=== PATIENT | male | born 1985 | race Caucasian/White ===

== ENCOUNTER 2016-12-03 16:07 | Inpatient (IN) | payer MEDICAID, OTHER ==
--- NOTE | 2016-12-03 17:52 | ED ---
Psych HPI - General Chief Complaint: Psychiatric Symptoms Stated Complaint: Suicidal Time Seen by Provider: 12/03/16 16:30 Source: patient, family, RN notes reviewed Mode of arrival: ambulatory - History of Present Illness Initial Comments: This is a 31-year-old male history of one to one half years of heroin addiction who states he is feeling desponded and suicidal today. He started being hooked on the medication. He did use some this morning she's feeling depressed and feels like he would like to overdose on until himself. He denies any other complaints this time any other drug use. He does have a history of anxiety. He denies any recent alcohol use he does smoke tobacco. He has a prior history of left lower extremity reduction internal fixation MD Complaint: suicidal ideation, feels depressed, other - Related Data Home Medications Medication Instructions Recorded Confirmed No Known Home Medications [No 12/03/16 12/03/16 Known Home Medications] Allergies Allergy/AdvReac Type Severity Reaction Status Date / Time grass pollen-perennial rye, Allergy Dyspnea Verified 12/03/16 17:25 standar mold Allergy Itching Verified 12/03/16 17:25 Review of Systems ROS Statement: Those systems with pertinent positive or pertinent negative responses have been documented in the HPI. ROS Other: All systems not noted in ROS Statement are negative. Past Medical History Past Medical History: Hypertension History of Any Multi-Drug Resistant Organisms: None Reported Past Surgical History: Adenoidectomy, Orthopedic Surgery, Tonsillectomy Past Psychological History: Anxiety Smoking Status: Current every day smoker Past Alcohol Use History: Rare Past Drug Use History: Heroin General Exam - General Exam Comments Initial Comments: This a well-developed well-nourished awake alert oriented 3 [id number] Limitations: no limitations General appearance: alert, anxious Head exam: Present: atraumatic, normocephalic, normal inspection Eye exam: Present: normal appearance, PERRL, EOMI. Absent: scleral icterus, conjunctival injection, periorbital swelling ENT exam: Present: normal exam, mucous membranes moist Neck exam: Present: normal inspection. Absent: tenderness, meningismus, lymphadenopathy Respiratory exam: Present: normal lung sounds bilaterally. Absent: respiratory distress, wheezes, rales, rhonchi, stridor Cardiovascular Exam: Present: regular rate, normal rhythm, normal heart sounds. Absent: systolic murmur, diastolic murmur, rubs, gallop, clicks GI/Abdominal exam: Present: soft, normal bowel sounds. Absent: distended, tenderness, guarding, rebound, rigid Extremities exam: Present: normal inspection, full ROM, normal capillary refill. Absent: tenderness, pedal edema, joint swelling, calf tenderness Back exam: Present: normal inspection Neurological exam: Present: alert, oriented X3, CN II-XII intact Psychiatric exam: Present: depressed, suicidal ideation Skin exam: Present: warm, dry, intact, normal color. Absent: rash Course Vital Signs 12/03/16 16:11 Temperature 98.2 F Pulse Rate 103 H Respiratory 20 Rate Blood Pressure 152/70 O2 Sat by Pulse 96 Oximetry Medical Decision Making - Medical Decision Making The patient was evaluated by psychiatric service and will be admitted for inpatient care. - Lab Data Lab Results 12/03/16 Range/Units 16:43 Urine Opiates Screen Detected H (NotDetected) Ur Oxycodone Screen Not Detected (NotDetected) Urine Methadone Screen Not Detected (NotDetected) Ur Propoxyphene Screen Not Detected (NotDetected) Ur Barbiturates Screen Not Detected (NotDetected) U Tricyclic Antidepress Not Detected (NotDetected) Ur Phencyclidine Scrn Not Detected (NotDetected) Ur Amphetamines Screen Not Detected (NotDetected) U Methamphetamines Scrn Not Detected (NotDetected) U Benzodiazepines Scrn Detected H (NotDetected) Urine Cocaine Screen Not Detected (NotDetected) U Marijuana (THC) Screen Detected H (NotDetected) Disposition Clinical Impression: Depression Disposition: TRANSFER TO PSYCH HOSP/UNIT Condition: Stable
[2016-12-03] MEDS ORDERED: MAG HYDROX/AL HYDROX/SIMETH 30 ML CUP PO PRN (19:54)
[2016-12-03] MEDS ORDERED: ZIPRASIDONE 20 MG VIAL IM PRN (19:54)
[2016-12-03] MEDS ORDERED: MAGNESIUM HYDROXIDE 2,400 MG/10 ML CUP PO PRN (19:54)
[2016-12-03] MEDS ORDERED: ACETAMINOPHEN TAB 325 MG TAB PO PRN (19:54)
[2016-12-03] MEDS ORDERED: LORazepam 1 MG TAB PO PRN (19:54)
[2016-12-03] MEDS ORDERED: traZODone HCL 50 MG TAB PO PRN (19:57)
[2016-12-03] MEDS ORDERED: ONDANSETRON 4 MG TAB PO PRN (19:57)
[2016-12-03] MEDS ORDERED: LOPERAMIDE 2 MG CAP PO PRN (19:58)
[2016-12-03] MEDS: cloNIDine HCL 0.1 MG TAB PO SCH (22:33)
[2016-12-04] MEDS: NICOTINE 21MG/24HR PATCH TRANSDERM SCH (08:31)
[2016-12-04] MEDS: cloNIDine HCL 0.1 MG TAB PO SCH ×3 (08:31→20:13)
[2016-12-04 09:33] LABS: Basophils % (A) 1 %; CH 32.5; CHCM 35.1; Eosinophils # (A) 0.1 k/uL (0-0.7); Eosinophils % (A) 3 %; HCT 45.7 % (39.0-53.0); HDW 2.59; HGB 15.4 gm/dL (13.0-17.5); Luc # (Auto) 0.15; Luc % (Auto) 3; Lymphocytes # (A) 1.5 k/uL (1.0-4.8); Lymphocytes % (A) 27 %; MCH 31.2 pg (25.0-35.0); MCHC 33.6 g/dL (31.0-37.0); MCV 92.8 fL (80.0-100.0); Monocytes # (A) 0.4 k/uL (0-1.0); Monocytes % (A) 6 %; Neutrophils # (A) 3.4 k/uL (1.3-7.7); Neutrophils % (A) 60 %; RBC 4.92 m/uL (4.30-5.90); RDW 12.6 % (11.5-15.5); WBC 5.6 k/uL (3.8-10.6); WBC (Perox) 5.69
[2016-12-04 09:50] LABS: ALT 61 U/L (21-72); AST 28 U/L (17-59); Alkaline Phosphatase 72 U/L (38-126); Anion Gap 11 mmol/L; Blood Urea Nitrogen 13 mg/dL (9-20); Calcium 9.8 mg/dL (8.4-10.2); Carbon Dioxide 26 mmol/L (22-30); Chloride 106 mmol/L (98-107); Glucose 114 mg/dL (74-99); Non-African American GFR(MDRD) >60 (>60 ml/min/1.73 sqM); Potassium 4.3 mmol/L (3.5-5.1); Sodium 143 mmol/L (137-145); Total Bilirubin 0.7 mg/dL (0.2-1.3); Total Protein 7.5 g/dL (6.3-8.2)
--- NOTE | 2016-12-04 11:41 | P.HP ---
Psychiatric H&P - . H&P Date: 12/04/16 History & Physical: DATE OF SERVICE: 12/04/2016 IDENTIFYING DATA: This patient is a -year-old single male who was admitted to the mental health unit through . HISTORY OF PRESENT ILLNESS: The patient presents with history of heroin use snorting for year and half, daily, 100-150 per day. thinks it might be gram says he has not taken a benzo thinks it might have been laced in heroin. Wants to get clean and called the help line, he was told if he was suicidal to come to er and he was also given December 07 as an intake. Report she has also been using cannbis at least daily sometimes more often. Not feeling suicidal here but felt suicidal if he could not tolerate the withdrawal he would use again and not get clean. Denies suicidal attempts in past. PAST PSYCHIATRIC HISTORY: Denies psychiatric hospitalizations, denies suicide attempts, no medications, no therapy. PAST MEDICAL HISTORY: denies. ALLERGIES: per record grass, hay fever, mold. CHEMICAL DEPENDENCY HISTORY: Heroin 1.5 years, only nasal, no IV or popping.Cannabis, began using at 18 or 19, began using daily past few years. Tried cocaine once did not like. ETOH no use for 3 years, drunk maybe 3x, does not like how he feels. . FAMILY PSYCHIATRIC HISTORY: Anxiety runs in family. Uncle committed suicide, he was in intermediate for something but grandfather did not believe he committed suicide but that was the report. FAMILY CHEMICAL DEPENDENCY HISTORY:ETOH runs on father's side, one aunt from etoh. Cannabis used by aunts and uncles. LEGAL HISTORY: Arrested for possession of etoh at 22, had to do community service and on probation for 3 years. SOCIAL HISTORY: Born and raised in [place], parents until he was 26 years old , has one younger brother and sister. Describes childhood as good, no wants. Middle lower class. Did not do well in school, C-D averages. Says he was dxd by school with adhd. prescribed stimulant did well in senior year. 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 He is involved in a law suit trying to have his studen loans removed. never, no children. No current relationship, heterosexual. Working until admitted, in landscaping. +nictoine. MENTAL STATUS EXAM: Patient alert and oriented 3, good eye contact, fair groomed in street clothing. Speech normal volume, rate and production. Coherent, logical and goal directed thought process. No ANGELICA, no FOI. [No TB/TW/ TI] Denied auditory and visual hallucinations. Denied paranoid ideation, delusions or IOR. Memory [grossly intact] Cognition average Recalled [3/0], [3/5]; Mood neutral to irritable/dysphoric, affect constricted, congruent with mood. Denies suicidal ideation, denies homicidal ideation. Insight limited; Judgement grossly intact for treatment purposes STRENGTHS: . Has housing WEAKNESSES: Addiction IMPRESSIONS: 31-year-old single male, admitted via emergency room for suicidal ideation related to his inability to stop using heroin. He called the help line and was told to come to the emergency room if he felt suicidal or if unable to avoid using heroin. Patient used heroin yesterday prior to coming in , now going through withdrawal. Patient denied suicidal ideation to specification writer but has reported to all other staff that he is suicidal. No past history of psychiatric problems, no family history of psychiatric problems, alleged suicide by an uncle but this is disputed by patient's grandfather. Patient does not meet criteria for cassandra/hypomania. No psychosis. Mood is irritable as expected with withdrawal, unclear if there's underlying depression, patient was guarded. Due to statements made to other staff members patient is at risk for suicide. Suicide ideation Opiate use disorder, severe R/O Depression, unspecified PLAN: . Continue inpatient psychiatric admission, for safety purposes and assessment and treatment of other mental illness. Provided supportive measures for opiate withdrawal, clonidine when necessary. Increase trazodone to help with sedation. Suicide checks. Patient to engage in groups. Allergies Allergy/AdvReac Type Severity Reaction Status Date / Time grass pollen-perennial rye, Allergy Dyspnea Verified 12/03/16 20:39 standar mold Allergy Itching Verified 12/03/16 20:39 Vital Signs Temp 98.0 F 12/04/16 06:44 Pulse 60 12/04/16 08:33 Resp 16 12/04/16 08:33 BP 128/63 12/04/16 08:33 Pulse Ox 95 12/03/16 20:25 Intake & Output 12/03/16 12/04/16 12/04/16 18:59 06:59 18:59 Weight 122.47 kg 131.088 kg Laboratory Last Values WBC 5.6 k/uL (3.8-10.6) 12/04/16 09:09 RBC 4.92 m/uL (4.30-5.90) 12/04/16 09:09 Hgb 15.4 gm/dL (13.0-17.5) 12/04/16 09:09 Hct 45.7 % (39.0-53.0) 12/04/16 09:09 MCV 92.8 fL (80.0-100.0) 12/04/16 09:09 MCH 31.2 pg (25.0-35.0) 12/04/16 09:09 MCHC 33.6 g/dL (31.0-37.0) 12/04/16 09:09 RDW 12.6 % (11.5-15.5) 12/04/16 09:09 Plt Count 278 k/uL (150-450) 12/04/16 09:09 Neutrophils % 60 % 12/04/16 09:09 Lymphocytes % 27 % 12/04/16 09:09 Monocytes % 6 % 12/04/16 09:09 Eosinophils % 3 % 12/04/16 09:09 Basophils % 1 % 12/04/16 09:09 Neutrophils # 3.4 k/uL (1.3-7.7) 12/04/16 09:09 Lymphocytes # 1.5 k/uL (1.0-4.8) 12/04/16 09:09 Monocytes # 0.4 k/uL (0-1.0) 12/04/16 09:09 Eosinophils # 0.1 k/uL (0-0.7) 12/04/16 09:09 Basophils # 0.0 k/uL (0-0.2) 12/04/16 09:09 Sodium 143 mmol/L (137-145) 12/04/16 09:09 Potassium 4.3 mmol/L (3.5-5.1) 12/04/16 09:09 Chloride 106 mmol/L (98-107) 12/04/16 09:09 Carbon Dioxide 26 mmol/L (22-30) 12/04/16 09:09 Anion Gap 11 mmol/L 12/04/16 09:09 BUN 13 mg/dL (9-20) 12/04/16 09:09 Creatinine 0.79 mg/dL (0.66-1.25) 12/04/16 09:09 Est GFR (MDRD) Af Amer >60 (>60 ml/min/1.73 sqM) 12/04/16 09:09 Est GFR (MDRD) Non-Af >60 (>60 ml/min/1.73 sqM) 12/04/16 09:09 Glucose 114 mg/dL (74-99) H 12/04/16 09:09 Calcium 9.8 mg/dL (8.4-10.2) 12/04/16 09:09 Total Bilirubin 0.7 mg/dL (0.2-1.3) 12/04/16 09:09 AST 28 U/L (17-59) 12/04/16 09:09 ALT 61 U/L (21-72) 12/04/16 09:09 Alkaline Phosphatase 72 U/L (38-126) 12/04/16 09:09 Total Protein 7.5 g/dL (6.3-8.2) 12/04/16 09:09 Albumin 4.6 g/dL (3.5-5.0) 12/04/16 09:09 TSH 0.395 mIU/L (0.465-4.680) L 12/04/16 09:09 Urine Opiates Screen Detected (NotDetected) H 12/03/16 16:43 Ur Oxycodone Screen Not Detected (NotDetected) 12/03/16 16:43 Urine Methadone Screen Not Detected (NotDetected) 12/03/16 16:43 Ur Propoxyphene Screen Not Detected (NotDetected) 12/03/16 16:43 Ur Barbiturates Screen Not Detected (NotDetected) 12/03/16 16:43 U Tricyclic Antidepress Not Detected (NotDetected) 12/03/16 16:43 Ur Phencyclidine Scrn Not Detected (NotDetected) 12/03/16 16:43 Ur Amphetamines Screen Not Detected (NotDetected) 12/03/16 16:43 U Methamphetamines Scrn Not Detected (NotDetected) 12/03/16 16:43 U Benzodiazepines Scrn Detected (NotDetected) H 12/03/16 16:43 Urine Cocaine Screen Not Detected (NotDetected) 12/03/16 16:43 U Marijuana (THC) Screen Detected (NotDetected) H 12/03/16 16:43 12/04/16 10:43
--- NOTE | 2016-12-04 15:54 | P.CONS ---
History of Present Illness - Reason for Consult Consult date: 12/04/16 medical management - History of Present Illness this is a 31-year-old male who does not have a primary care physician. He has a past medical history of hypertension which resolved, tobacco use and dependence, anxiety, heroin use. patient gives history that he was seeking treatment for his addiction and does have plans to go to [place] on Thursday. Patient stated that he did not want to be around he didn't know if he could make it that long. He denies any true suicidal thoughts or activity. He denies any suicide attempts in the past. He has not been admitted to the mental health unit before. He denies any nausea or vomiting. He does complain of uncomfortable sensation in his legs and back. TSH was 0.395. Urine drug screen was positive for opiates, benzodiazepines and marijuana. He has been admitted to the mental health unit. Review of Systems All systems: negative Constitutional: Denies chills, Denies fever Eyes: denies blurred vision, denies pain Ears, nose, mouth and throat: Denies headache, Denies sore throat Cardiovascular: Denies chest pain, Denies shortness of breath Respiratory: Denies cough Gastrointestinal: Denies abdominal pain, Denies diarrhea, Denies nausea, Denies vomiting Musculoskeletal: Denies myalgias Integumentary: Denies pruritus, Denies rash Neurological: Denies numbness, Denies weakness Psychiatric: Reports depression, Reports hopelessness, Denies anxiety Endocrine: Denies fatigue, Denies weight change Past Medical History Past Medical History: Hypertension History of Any Multi-Drug Resistant Organisms: None Reported Past Surgical History: Adenoidectomy, Orthopedic Surgery, Tonsillectomy Additional Past Surgical History / Comment(s): left ankle ORIF Past Psychological History: Anxiety Smoking Status: Current every day smoker Past Alcohol Use History: Rare Additional Past Alcohol Use History / Comment(s): patient is a smoker of 3-4 cigarettes since he was 19 years of age. He states he uses marijuana. No medical marijuana card. Patient uses here when which he snorts. He denies any IV drug use. He denies any other street drug use. He is currently homeless. Past Drug Use History: Heroin - Past Family History Father Additional Family Medical History / Comment(s): father is alive at age 56 with history of diabetes, hypertension, obstructive sleep apnea, COPD. Mother Additional Family Medical History / Comment(s): mother is alive at age 53 with history of fibromyalgia. Brother(s) Additional Family Medical History / Comment(s): patient has 1 brother and 1 sister with no major medical problems. Patient does not have any children. Medications and Allergies Home Medications Medication Instructions Recorded Confirmed Type No Known Home Medications [No 12/03/16 12/03/16 History Known Home Medications] Allergies Allergy/AdvReac Type Severity Reaction Status Date / Time grass pollen-perennial rye, Allergy Dyspnea Verified 12/03/16 20:39 standar mold Allergy Itching Verified 12/03/16 20:39 Physical Exam Vitals: Vital Signs Temp Pulse Pulse Pulse Resp BP BP 12/04/16 08:33 60 16 128/63 12/04/16 06:44 98.0 F 57 L 16 136/74 12/03/16 22:33 98.0 F 67 16 135/64 12/03/16 20:25 97.8 F 75 16 12/03/16 19:58 98.1 F 80 18 152/76 12/03/16 16:11 98.2 F 103 H 20 152/70 BP Pulse Ox 12/04/16 08:33 12/04/16 06:44 12/03/16 22:33 12/03/16 20:25 143/72 95 12/03/16 19:58 98 12/03/16 16:11 96 Intake and Output 12/03/16 12/04/16 12/04/16 22:59 06:59 14:59 Other: Weight 131.088 kg Gen: This is a morbidly obese 31-year-old male. He is cooperative and appears to be somewhat uncomfortable. HEENT: Head is atraumatic, normocephalic. Pupils equal, round. Sclerae is anicteric. NECK: Supple. No JVD. No lymphadenopathy. No thyromegaly. LUNGS: Clear to auscultation. No wheezes or rhonchi. No intercostal retractions. HEART: Regular rate and rhythm. No murmur. ABDOMEN: Soft. Bowel sounds are present. No masses. No tenderness. EXTREMITIES: No pedal edema. No calf tenderness. NEUROLOGICAL: Patient is awake, alert and oriented x3. Cranial nerves 2 through 12 are grossly intact. Results CBC & Chem 7: 12/04/16 09:09 12/04/16 09:09 Labs: Abnormal Lab Results - Last 24 Hours (Table) 12/03/16 12/04/16 Range/Units 16:43 09:09 Glucose 114 H (74-99) mg/dL TSH 0.395 L (0.465-4.680) mIU/L Urine Opiates Screen Detected H (NotDetected) U Benzodiazepines Scrn Detected H (NotDetected) U Marijuana (THC) Screen Detected H (NotDetected) Assessment and Plan Plan: 1. Depression with underlying heroin addiction. Patient admitted to the mental health unit. Continue current plan of care. 2. Narcotic withdrawal. Continue Catapres, Imodium, Ativan. 3. Tobacco use and dependence. Continue nicotine patch. Impression and plan of care have been directed as dictated by the signing physician. Spring Anderson nurse practitioner acting as scribe for signing physician.
[2016-12-04] MEDS: LORazepam 2 MG/ML SYRINGE IM PRN (20:14)
[2016-12-04] MEDS ORDERED: traZODone HCL 100 MG TAB PO SCH (21:00)
[2016-12-05] MEDS: LORazepam 2 MG/ML SYRINGE IM PRN (06:20)
[2016-12-05] MEDS: NICOTINE 21MG/24HR PATCH TRANSDERM SCH (08:29)
[2016-12-05] MEDS: cloNIDine HCL 0.1 MG TAB PO SCH ×3 (08:29→20:50)
[2016-12-05 08:38] VITALS: BMI 37.0
[2016-12-05] MEDS ORDERED: hydrOXYzine PAMOATE 25 MG CAP PO PRN (12:15)
--- NOTE | 2016-12-05 12:20 | P.PN ---
Progress Note - Text INTERVERAL HISTORY:Patient in bed, initially refused to get up to meet, but eventually complied. Patient states he is trying to sleep because he did not sleep last night. Patient reports in groups that if he were to leave and not get into [place] he would kill himself, he still is reporting this. He is asked about requesting a new doctor, reports "I'm not being listened to", asked in what way, patient reports he is not sleeping and health underwriter is not doing anything to help him. Reviewed vitals, stable. Selected Entries 12/05/16 08:30 Temperature 97.8 F Pulse Rate [ 75 Left Supine] Respiratory 16 Rate Blood Pressure 135/64 [Left Arm Supine] MENTAL STATUS EXAM: Patient alert and oriented 3, no eye contact, looked at ground the entire session, minimally coopertive, fair groomed in street clothing. Speech low volume, rate and production. Coherent, logical and goal directed thought process. No ANGELICA, no FOI. [No TB/TW/ TI] Denied auditory and visual hallucinations. Denied paranoid ideation, delusions or IOR. Memory [grossly intact] Cognition average Mood irritable/dysphoric, affect constricted, congruent with mood. +suicidal ideation, denies homicidal ideation. Insight none; Judgment grossly intact for treatment purposes IMPRESSIONS: 31-year-old single male, admitted via emergency room for suicidal ideation related to his inability to stop using heroin. He is going thru withdrawal but mild. Immature defenses with his behavior related to not receiving certain medications. Although denies suicidal ideation to health underwriter he is still voicing SI in groups related to the future and his inability to stop opiates on his own. Patient does not meet criteria for cassandra/hypomania. No psychosis. Mood is irritable above what is expected with withdrawal, unclear if there's underlying depression, or personality disorder, patient is guarded. Due to statements made to other staff members patient is at risk for suicide. Suicide ideation Opiate use disorder, severe R/O Depression, unspecified PLAN: . PLAN: Continue inpatient psychiatric admission, for safety purposes and assessment and treatment of other mental illness. Provided supportive measures for opiate withdrawal, clonidine when necessary. Vitals are stable, cannot increase clonidine w/o risk of hypotension. Educate insomnia one of sxs of withdrawal. Will add hydroxyzine 25mg qid for anxiety/agitation Increase Trazodone 150mg to help with sedation. Suicide checks. Patient to engage in groups.
[2016-12-05] MEDS ORDERED: traZODone HCL 50 MG TAB PO SCH (21:00)
[2016-12-06] MEDS: NICOTINE 21MG/24HR PATCH TRANSDERM SCH (09:10)
[2016-12-06] MEDS: cloNIDine HCL 0.1 MG TAB PO SCH ×3 (09:10→21:13)
[2016-12-06] MEDS: LORATADINE 10 MG TAB PO SCH (09:13)
[2016-12-06] MEDS: FLUTICASONE 50MCG/SPRAY NASAL 16GM EA NOSTRIL SCH (09:14)
--- NOTE | 2016-12-06 11:12 | P.PN ---
Subjective this is a 31-year-old male who does not have a primary care physician. He has a past medical history of hypertension which resolved, tobacco use and dependence, anxiety, heroin use. patient gives history that he was seeking treatment for his addiction and does have plans to go to [place] on Thursday. Patient stated that he did not want to be around he didn't know if he could make it that long. He denies any true suicidal thoughts or activity. He denies any suicide attempts in the past. He has not been admitted to the mental health unit before. He denies any nausea or vomiting. He does complain of uncomfortable sensation in his legs and back. TSH was 0.395. Urine drug screen was positive for opiates, benzodiazepines and marijuana. He has been admitted to the mental health unit. 12/06: We have been requested to recheck patient as he is complaining of of runny nose and sore throat with nasal congestion. He does have seasonal ALLERGIES. He states it started with coughing while he was eating last night. He denies any aspiration and denies any difficulty swallowing. Objective - Vital Signs Vital signs: Vital Signs Temp 97.6 F 12/06/16 06:51 Pulse 63 12/06/16 09:09 Resp 20 12/06/16 09:09 BP 134/87 12/06/16 09:09 Pulse Ox 97 12/05/16 08:30 Intake & Output 12/05/16 12/06/16 12/06/16 18:59 06:59 18:59 Weight 131.08 kg - Exam Gen: This is a morbidly obese 31-year-old male. He is cooperative and appears to be somewhat uncomfortable. HEENT: Head is atraumatic, normocephalic. Pupils equal, round. Sclerae is anicteric. Oral pharynx with no erythema. NECK: Supple. No JVD. No lymphadenopathy. No thyromegaly. LUNGS: Clear to auscultation. No wheezes or rhonchi. No intercostal retractions. HEART: Regular rate and rhythm. No murmur. ABDOMEN: Soft. Bowel sounds are present. No masses. No tenderness. EXTREMITIES: No pedal edema. No calf tenderness. NEUROLOGICAL: Patient is awake, alert and oriented x3. Cranial nerves 2 through 12 are grossly intact. - Labs CBC & Chem 7: 12/04/16 09:09 12/04/16 09:09 Assessment and Plan Plan: 1. Depression with underlying heroin addiction. Patient admitted to the mental health unit. Continue current plan of care. 2. Narcotic withdrawal. Continue Catapres, Imodium, Ativan. 3. Tobacco use and dependence. Continue nicotine patch. 4. Seasonal ALLERGIES. Claritin and Flonase added. Impression and plan of care have been directed as dictated by the signing physician. Spring Anderson nurse practitioner acting as scribe for signing physician.
--- NOTE | 2016-12-06 11:54 | P.PN ---
Progress Note - Text INTERVAL HISTORY: Patient seen in the hallway requested to be seen. Patient reports that he is feeling much better. Apologize for his behavior yesterday, states I know that I can be stubborn. Patient reports that he did sleep a bit better but felt too groggy in the morning and wonders if he could have a lower dose. Patient is preparing to go to [place] tomorrow morning, mother will pick him up. Family meeting took place this week on the phone. Patient states he is hopeful that this will work for him says in the past he has never been able to get through withdrawal before. MENTAL STATUS EXAM: Patient alert and oriented 3, no eye contact, looked at ground the entire session, minimally coopertive, fair groomed in street clothing. Speech low volume, rate and production. Coherent, logical and goal directed thought process. No ANGELICA, no FOI. [No TB/TW/ TI] Denied auditory and visual hallucinations. Denied paranoid ideation, delusions or IOR. Memory [grossly intact] Cognition average Mood neutral to euthymic, affect full range decreased intensity, congruent with mood. Denies suicidal ideation, denies homicidal ideation. Insight none; Judgment grossly intact for treatment purposes IMPRESSIONS: 31-year-old single male, admitted via emergency room for suicidal ideation related to his inability to stop using heroin. Is at the tail end of withdrawal. Not displaying the immature defenses that he has in the last few days. No longer drug seeking His denial of suicidal ideation appears to be genuine, he is no longer reporting suicidal ideation in groups. Patient does not meet criteria for cassandra/hypomania. No psychosis. No evidence of underlying depression, or personality disorder. Suicide ideation Opiate use disorder, severe Withdrawal from opiates PLAN: . PLAN: Continue inpatient psychiatric admission, for safety purposes and assessment and treatment of other mental illness today with discharge planned tomorrow and admission to [place]. Will provide nicotine patch at his request. Trazodone 100mg hydroxyzine 25mg qid for anxiety/agitation Suicide checks. Patient to engage in groups.
--- NOTE | 2016-12-06 16:15 | P.DS ---
Providers Date of admission: 12/03/16 19:51 Expected date of discharge: 12/07/16 Attending physician: Leigh Davis MD Consults: 12/03/16 19:54 Consult Physician Routine Consulting Provider: Roddy Hager Consult Reason/Comments: Medical Management Do you want consulting provider notified?: Yes Primary care physician: Stated None Hospital Course: Patient called a crisis hotline reporting suicidal ideation because he could not stop using opiates. Patient was told to go to the emergency room he presented and was admitted to the mental health unit. Patient has been using opiates, heroin, snorting for approximately 2 years. Has tried to get off but has not been able to do so. Feels suicidal and hopeless because of that. Patient was admitted and started on clonidine, he was experiencing withdrawal from opiates. Displaying an irritable mood, demanding, drug seeking. After about 2 days patient apologize for his behavior, recognizing that he can be difficult and stubborn. He had trouble sleeping and trazodone was provided but last night the dose was too high at 150 and requested if he could go to a lower dose. Patient reported feeling much better toda Patient alert and oriented 3, good eye contact, fair groomed in hospital attire /street clothing. Speech normal volume, rate and production. Coherent, logical and goal directed thought process. No ANGELICA, no FOI. [No TB/TW/ TI] Denied auditory and visual hallucinations. Denied paranoid ideation, delusions or IOR. Memory intact Cognition average Mood neutral to euthymic, affect full range decreased intensity, congruent with mood. Denies suicidal ideation, denies homicidal ideation. Insight partial; Judgment grossly intact for treatment purposes IMPRESSIONS: 31-year-old single male, admitted via emergency room for suicidal ideation related to his inability to stop using heroin. Is at the tail end of withdrawal. Not displaying the immature defenses that he has in the last few days. No longer drug seeking His denial of suicidal ideation appears to be genuine, he is no longer reporting suicidal ideation in groups. Patient does not meet criteria for cassandra/hypomania. No psychosis. No evidence of underlying depression, or personality disorder. Suicide ideation Opiate use disorder, severe Withdrawal from opiates PLAN: Continue inpatient psychiatric admission, for safety purposes and assessment and treatment of other mental illness today with discharge planned tomorrow and admission to [facility]. Discharge tomorrow morning Will provide nicotine patch at his request. Trazodone 100mg hydroxyzine 25mg qid for anxiety/agitation Suicide checks. Pertinent Studies: none Procedures: none Patient Condition at Discharge: Stable Plan - Discharge Summary New Discharge Prescriptions: New Fluticasone Nasal Prosperity [Flonase Nasal Prosperity] 2 spray EA NOSTRIL DAILY spray hydrOXYzine PAMOATE [Vistaril] 25 mg PO Q6HR PRN #30 cap PRN Reason: Agitation Or Acute Anxiety Nicotine 21Mg/24Hr Patch [Habitrol] 1 patch TRANSDERM DAILY #7 patch traZODone HCL [Desyrel] 100 mg PO HS #7 tab Discharge Medication List Fluticasone Nasal Prosperity [Flonase Nasal Prosperity] 2 spray EA NOSTRIL DAILY spray [Rx] Nicotine 21Mg/24Hr Patch [Habitrol] 1 patch TRANSDERM DAILY #7 patch 12/06/16 [ Rx] hydrOXYzine PAMOATE [Vistaril] 25 mg PO Q6HR PRN #30 cap 12/06/16 [Rx] traZODone HCL [Desyrel] 100 mg PO HS #7 tab 12/06/16 [Rx] Follow up Appointment(s)/Referral(s): [facility] [Outside] - 12/07/16 9:45 am (12/07/16 at 945am with intake. ) None,Stated [Primary Care Provider] - 1-2 days
[2016-12-06] MEDS ORDERED: traZODone HCL 100 MG TAB PO SCH (21:00)
[2016-12-07 06:58] VITALS: TEMP 97.7
[2016-12-07] MEDS: LORATADINE 10 MG TAB PO SCH (08:09)
[2016-12-07] MEDS: FLUTICASONE 50MCG/SPRAY NASAL 16GM EA NOSTRIL SCH (08:09)
[2016-12-07] MEDS: NICOTINE 21MG/24HR PATCH TRANSDERM SCH (08:09)
[2016-12-07] MEDS: cloNIDine HCL 0.1 MG TAB PO SCH (08:09)
[2016-12-07 08:21] VITALS: BP 148/78; PULSE 65; RESP 18
== END 2016-12-07 08:50 | disposition home or self-care (01) | DRG 897 ==
LOC: EC 16:07 → 3MHU 19:51
PROVIDERS: ADMIT Psychiatry & Neurology Addiction Medicine; ATTEND Psychiatry & Neurology Addiction Medicine
DX: F11.23 Opioid dependence with withdrawal (principal); R45.851 Suicidal ideations; Z81.8 Family history of other mental and behavioral disorders; Z81.1 Family history of alcohol abuse and dependence; Z81.3 Family history of other psychoactive substance abuse and dependence; J30.2 Other seasonal allergic rhinitis; F41.9 Anxiety disorder, unspecified; F17.203 Nicotine dependence unspecified, with withdrawal
CPT/HCPCS: 80053; 80306; 82075; 84443; 85025; 99285